=== PATIENT | male | born 1955 | race Caucasian/White ===

== ENCOUNTER 2022-09-03 08:12 | Emergency (ER) | payer OTHER ==
[2022-09-03 08:31] VITALS: BP 123/56
--- NOTE | 2022-09-03 09:09 | XRAY Report ---
PROCEDURE: Shoulder 3 View RT INDICATIONS: pain TECHNIQUE: 3 views of the shoulder were acquired. COMPARISON: None. FINDINGS: Bones: No fractures or dislocations. No suspicious bony lesions. Visualized ribs appear intact. D egenerative changes are seen, particularly involving the acromioclavicular joint. Moderate glenohumer al joint space narrowing is seen. Soft tissues: No suspicious soft tissue calcifications. The visualized lung demonstrates a normal a ppearance. IMPRESSION: Degenerative changes are seen by plain film, without acute abnormality identified. Please correlate with focal tenderness. If there is point tenderness (or other clinical concern for a fracture not seen on these plain films) then please consider a dedicated CT study or a short term fo llow up plain film series for further evaluation. If it would be helpful for clinical management decision making, please consider a dedicated, schedule d shoulder MRI for further evaluation (assuming that there is no contraindication). Reviewed by: Amadou Robison MD on 09/03/2022 8:07 AM MARYJO Approved by: Amadou Robison MD on 09/03/2022 8:07 AM MARYJO Station ID: [id number]
--- NOTE | 2022-09-03 09:35 | ED Physician Documentation ---
PD HPI UPPER EXT INJURY - Stated complaint Stated Complaint: R SHOULDER INJ - Chief complaint Chief Complaint: Ext Problem - History obtained from History obtained from: Patient - Additonal information Additional information: Patient is a 67-year-old male presenting for evaluation of right shoulder pain that is been present since last night. He is moving out of his place and has been lifting boxes for the past several days.He tried ibuprofen without significant improvement last night. The pain is worse with certain movements. He denies any known prior injuries. Pain does not radiate elsewhere. Review of Systems Constitutional: denies: Fever Cardiac: denies: Chest pain / pressure Respiratory: denies: Dyspnea GI: denies: Abdominal Pain Musculoskeletal: reports: Joint pain. denies: Back pain PD PAST MEDICAL HISTORY - Present Medications Home Medications: Ambulatory Orders Medication Instructions Recorded Confirmed Aspirin [[place] Aspirin] 81 mg PO DAILY 09/03/22 09/03/22 Sildenafil Citrate [Viagra] 25 mg PO ONCE PRN 09/03/22 09/03/22 Simvastatin [Zocor] 10 mg PO HS 09/03/22 09/03/22 - Allergies Allergies/Adverse Reactions: Allergies Allergy/AdvReac Type Severity Reaction Status Date / Time No Known Drug Allergies Allergy Verified 09/03/22 08:31 PD ED PE NORMAL - General General: Alert and oriented X 3, No acute distress, Well developed/nourished - HEENT HEENT: Atraumatic - Neck Neck: Supple, no meningeal sign, No bony TTP - Cardiac Cardiac: Strong equal pulses - Respiratory Respiratory: No respiratory distress - Derm Derm: Warm and dry - Extremities Extremities: No deformity, Other (Tenderness to right anterior shoulder, Able to raise his arm past 90 degrees Although reports pain with doing so, Pain on range of motion - specifically with attempts at putting his arm behind his back, ). No: Normal ROM s pain - Neuro Neuro: No motor deficit, No sensory deficit Results - Vitals Vitals: Vital Signs - 24 hr 09/03/22 08:25 Temperature 36.3 C L Heart Rate 58 L Respiratory 15 Rate Blood Pressure 123/56 L O2 Saturation 98 Oxygen O2 Source Room air PD Medical Decision Making - ED course Complexity details: reviewed results, re-evaluated patient, d/w patient ED course: Patient presenting for evaluation of right shoulder pain that is been present since last night in the setting of packing and lifting boxes.No deformity noted on exam. No erythema or swelling to suggest infection.Motor, sensation are preserved. Good distal pulses. An x-ray was obtained which I reviewed and see no signs for fracture or dislocation.Clinical exam also does not suggest a dislocation.Suspect likely strain injury from recent activity. Offered sling but patient declines. Patient is comfortable plan with continued supportive care along with the use of ibuprofen and lidocaine patches. He declined need for anything stronger. He is advised on need for close follow-up with his PCP. Departure - Departure Disposition: 01 Home, Self Care Clinical Impression: Right shoulder injury Condition: Stable Instructions: ED Shoulder Pain [facility] Comments: The x-ray of your shoulder does not show a broken or out of place bone. However you could have an injury to a muscle or ligament in the shoulder joint. I would continue with anti-inflammatory such as acetaminophen and lidocaine patches, rest, ice. I would recommend close follow-up with your primary care provider as you may need further testing such as an MRI. Please return to the emergency department if you develop any worsening symptoms such as pain in a new location or uncontrolled pain. Discharge Date/Time: 09/03/22 09:57
== END 2022-09-03 09:57 | disposition home or self-care (01) ==
LOC: ED 08:12
DX: S49.91XA Unspecified injury of right shoulder and upper arm, initial encounter (principal); X58.XXXA Exposure to other specified factors, initial encounter; Y93.E6 Activity, residential relocation
CPT/HCPCS: 99283